=== PATIENT | female | born 1995 | race Two or more races ===

== ENCOUNTER 2021-07-02 17:07 | Emergency (ER) | payer OTHER ==
[~2021-07-02] VITALS: Ht 157.5 cm; Wt 66.8 kg
[2021-07-02] MEDS ORDERED: KETOROLAC 15 MG/ML VIAL. IM ONE (18:45)
[2021-07-02] MEDS ORDERED: CYCL-331 PO (18:50)
--- NOTE | 2021-07-02 18:51 | PHYS DOC ---
Past History Additional Past Medical Histor: scolosis, PCOS, Migraines (CHAVEZ MITCHELL APRN) Past Surgical History: Other Additional Past Surgical Histo: Septoplasty (CHAVEZ MITCHELL APRN) Alcohol Use: None (CHAVEZ MITCHELL APRN) General Adult EDM: Chief Complaint: BACK INJURY HPI: HPI: Patient is a 26-year-old female who presents with thoracic back pain. Patient states that pain started on Tuesday and has gradually increased. Pain is worse with inhaling and exhaling. Pain is also reproducible and worse with movement. "I started working out 2 weeks ago and started lifting weights". Patient denies any known injury. Denies shortness of breath, chest pain. History of PCOS, scoliosis. (CHAVEZ MITCHELL APRN) Review of Systems: Review of Systems: Constitutional: Denies fever or chills Eyes: Denies change in visual acuity HENT: Denies nasal congestion or sore throat Respiratory: Denies cough or shortness of breath Cardiovascular: Denies chest pain or edema GI: Denies abdominal pain, nausea, vomiting, bloody stools or diarrhea : Denies dysuria Musculoskeletal: Denies back pain or joint pain Integument: Denies rash Neurologic: Denies headache, focal weakness or sensory changes Endocrine: Denies polyuria or polydipsia Lymphatic: Denies swollen glands Psychiatric: Denies depression or anxiety (CHAVEZ MITCHELL APRN) Current Medications: Current Meds: Current Medications Medications (Trade) Dose Ordered Sig/Martha Start Time Stop Time Status Last Admin Dose Admin Ketorolac Tromethamine (Toradol 15mg Vial) 15 mg 1X ONCE 07/02/21 18:45 07/02/21 18:46 UNV (CHAVEZ MITCHELL APRN) Allergies: Allergies: Allergies Coded Allergies Type Severity Reaction Last Updated Verified Penicillins Allergy Unknown 07/02/21 Yes amoxicillin Allergy Unknown 07/02/21 Yes clavulanic acid Allergy Unknown 07/02/21 Yes levofloxacin Allergy Unknown 07/02/21 Yes (CHAVEZ MITCHELL APRN) Physical Exam: PE: Constitutional: Well developed, well nourished, no acute distress, non-toxic appearance. [] HENT: Normocephalic, atraumatic, bilateral external ears normal, oropharynx moist, no oral exudates, nose normal. [] Eyes: PERRLA, EOMI, conjunctiva normal, no discharge. [] Neck: Normal range of motion, no tenderness, supple, no stridor. [] Cardiovascular:Heart rate regular rhythm, no murmur [] Lungs & Thorax: Bilateral breath sounds clear to auscultation [] Abdomen: Bowel sounds normal, soft, no tenderness, no masses, no pulsatile mass es. [] Skin: Warm, dry, no erythema, no rash. [] Back: Thoracic tenderness, no CVA tenderness. [] Extremities: No tenderness, no cyanosis, no clubbing, ROM intact, no edema. [] Neurologic: Alert and oriented X 3, normal motor function, normal sensory function, no focal deficits noted. [] Psychologic: Affect normal, judgement normal, mood normal. [] (CHAVEZ MITCHELL APRN) Current Patient Data: Labs: Laboratory Tests Test 07/02/21 18:10 POC Urine HCG, Qualitative hcg negative (Negative) Vital Signs: Vital Signs Date Time Temp Pulse Resp B/P (MAP) Pulse Ox O2 Delivery O2 Flow Rate FiO2 07/02/21 17:30 97.9 114 16 135/92 (106) 99 Room Air (CHAVEZ MITCHELL APRN) EKG: EKG: Sinus rhythm. Heart rate 75 bpm. [] (CHAVEZ MITCHELL APRN) Radiology/Procedures: Radiology/Procedures: []EXAM: PA and Lateral Views of the Chest DATE: 07/02/2021 6:38 PM INDICATION: Reason: MID BACK PAIN SINCE TUESDAY.NO KNOWN INJURY / Spl. Instructions: / History: COMPARISON: No Prior FINDINGS: The heart is not enlarged. Mediastinal and hilar contours are normal. No focal parenchymal airspace opacity. No pleural effusion or pneumothorax. IMPRESSION: 1. No radiographic evidence for acute cardiopulmonary process. Electronically signed by: Jose Miguel Arevalo MD (07/02/2021 6:48 PM) [facility] (CHAVEZ MITCHELL APRN) Heart Score: C/O Chest Pain: No Risk Factors: Risk Factors: DM, Current or recent (<one month) smoker, HTN, HLP, family history of CAD, obesity. Risk Scores: Score 0 - 3: 2.5% MACE over next 6 weeks - Discharge Home Score 4 - 6: 20.3% MACE over next 6 weeks - Admit for Clinical Observation Score 7 - 10: 72.7% MACE over next 6 weeks - Early Invasive Strategies (CHAVEZ MITCHELL APRN) Course & Med Decision Making: Course & Med Decision Making Pertinent Labs and Imaging studies reviewed. (See chart for details) [] 26-year-old female presents with thoracic back pain. Pain started on Tuesday and has gotten worse today. Reports pain is worse with breathing and movement. Pain is reproducible. Denies chest pain or shortness of breath. Chest x-ray, EKG and Toradol given for pain. Discussed results with patient. Advised patient that pain is most likely from muscle strain from her recent lifting. Patient sent home with Flexeril. Advised patient to take Motrin at home for discomfort. Patient should follow-up with her PCP in the next 2 to 3 days if pain does not improve. Return precautions discussed in length. Patient is hemodynamically stable upon disposition. (CHAVEZ MITCHELL APRN) Course & Med Decision Making Did not see or evaluate patient. Did not discuss patient with LASER OPERATOR. Agree with LASER OPERATOR's work-up and disposition per note. (VALDEZ HUNT MD) [place] Disclaimer: [place] Disclaimer: This electronic medical record was generated, in whole or in part, using a voice recognition dictation system. (CHAVEZ MITCHELL APRN) Departure Departure: Impression: Primary Impression: Muscle strain of upper back Disposition: 01 HOME / SELF CARE / HOMELESS Condition: STABLE Referrals: PCP,UNKNOWN (PCP) Patient Instructions: Muscle Strain, [id number] Additional Instructions: You were seen in the emergency room for pain in your upper back. Chest x-ray and EKG were unremarkable. You were given a Toradol injection to help with discomfort. I also sending you home with Flexeril, which is a muscle relaxer. You most likely have a muscle strain from recently starting to workout and lift. If your pain does not improve follow-up with your PCP in the next few days. return to the emergency room if you have worsening symptoms or concerns. EMERGENCY DEPARTMENT GENERAL DISCHARGE INSTRUCTIONS Thank you for coming to [facility] (ED) today and trusting us with you care. We trust that you had a positivie experience in our Emergency Department. If you wish to speak to the department management, you may call the director at [phone]. YOUR FOLLOW UP INSTRUCTIONS ARE FOLLOWS: 1. Do you have a private Doctor? If you do not have a private doctor, please ask for a resource list of physicians or clinics that may be able to assist you with follow up care. 2. The Emergency Physician has interpreted your x-rays. The X-Ray specialist will also review them. If there is a change in the findings, you will be notified in 48 hours when at all possible. 3. A lab test or culture has been done, your results will be reviewed and you will be notified if you need a change in treatment. ADDITIONAL INSTRUCTIONS AND INFORMATION: 1. Your care today has been supervised by a physician who is specially trained in emergency care. Many problems require more than one evaluation for a complete diagnosis and treatment. We recommend that you schedule your follow up appointment as recommended to ensure complete treatment of you illness or injury. If you are unable to obtain follow up care and continue to have a problem, or if your condition worsens, we recommend that you return to the ED. 2. We are not able to safely determine your condition over the phone nor are we able to give sound medical advice over the phone. For these safety reasons, if you call for medical advice we will ask you to come to the ED for further evaluation. 3. If you have any questions regarding these discharge instructions please call the ED at [phone]. SAFETY INFORMATION: In the interest of safety, wellness, and injury prevention; we encourage you to wear your sealbelt, if you smoke; quite smoking, and we encourage family to use a protective helmet for bicycling and other sporting events that present an increased risk for head injury. IF YOUR SYMPTOMS WORSEN OR NEW SYMPTOMS DEVELOP, OR YOU HAVE CONCERNS ABOUT YOUR CONDITION; OR IF YOUR CONDITION WORSENS WHILE YOU ARE WAITING FOR YOUR FOLLOW UP APPOINTMENT; EITHER CONTACT YOUR PRIMARY CARE DOCTOR, THE PHYSICIAN WHOSE NAME AND NUMBER YOU WERE GIVEN, OR RETURN TO THE ED IMMEDIATELY. Scripts Cyclobenzaprine Hcl (CYCLOBENZAPRINE HCL) 10 Mg Tablet 1 TAB PO TID PRN for PAIN for 10 Days, #30 TAB 0 Refills Prov: CHAVEZ MITCHELL APRN 07/02/21 CHAVEZ MITCHELL APRN Jul 02, 2021 18:51 VALDEZ HUNT MD Jul 02, 2021 22:56
[2021-07-02 19:55] VITALS: BP 132/90
--- NOTE | 2021-07-03 03:48 | EKG ---
[address] [address] Test Date: 2021-07-02 Test Time: 18:57:07 Pat Name: MAGGIE JOHNSON Department: Room: Gender: F Practicing Md Anesthesiologist: PERFECTO : 1995 Requested By: CHAVEZ MITCHELL Order Number: [id number] Reading MD: Dano Dillon MD Measurements Intervals [place] Rate: 75 P: 50 GA: 152 QRS: 32 QRSD: 84 T: 8 QT: 354 QTc: 398 Interpretive Statements SINUS RHYTHM Electronically Signed On 07-06-2021 11:25:31 CDT by Dano Dillon MD
== END 2021-07-02 19:59 | disposition home or self-care (01) ==
LOC: ER 17:07
DX: S29.012A Strain of muscle and tendon of back wall of thorax, initial encounter (principal); Z88.0 Allergy status to penicillin; Z88.1 Allergy status to other antibiotic agents; X50.0XXA Overexertion from strenuous movement or load, initial encounter; Y93.89 Activity, other specified; Y92.89 Other specified places as the place of occurrence of the external cause; Y99.8 Other external cause status
CPT/HCPCS: 71046; 81025; 93005; 96372; 99283; J1885